=== PATIENT | male | born 1945 | race Caucasian/White ===

== ENCOUNTER 2017-08-10 11:53 | Emergency (ER) | payer OTHER ==
[~2017-08-10] VITALS: Ht 182.9 cm; Wt 88.5 kg
[2017-08-10] MEDS ORDERED: HYTRIN 2MG CAPSU2 MG PO (12:02)
[2017-08-10] MEDS ORDERED: HYDROCODONE-AP1 EAC6 PO (13:47)
[2017-08-10 13:58] VITALS: BP 163/83
== END 2017-08-10 13:59 | disposition home or self-care (01) ==
LOC: M.ERS 11:53
DX: S43.085A Other dislocation of left shoulder joint, initial encounter (principal); I10 Essential (primary) hypertension; W10.8XXA Fall (on) (from) other stairs and steps, initial encounter; Y93.89 Activity, other specified; Y92.89 Other specified places as the place of occurrence of the external cause; Y99.8 Other external cause status

== ENCOUNTER 2017-08-16 19:26 | Emergency (ER) | payer OTHER ==
[~2017-08-16] VITALS: Ht 182.9 cm; Wt 86.2 kg
[~2017-08-16 19:26] MED LIST: HYDROCODONE-AP1 EAC6 PO; HYTRIN 2MG CAPSU2 MG PO
[2017-08-16 22:59] VITALS: BP 177/95
== END 2017-08-16 23:00 | disposition home or self-care (01) ==
LOC: M.ERS 19:26
DX: S43.085A Other dislocation of left shoulder joint, initial encounter (principal); I10 Essential (primary) hypertension; X50.1XXA Overexertion from prolonged static or awkward postures, initial encounter; Y93.89 Activity, other specified; Y92.89 Other specified places as the place of occurrence of the external cause; Y99.8 Other external cause status